=== PATIENT | male | born 1935 | race Hispanic/Latino ===

== ENCOUNTER 2018-02-10 06:52 | Day surgery (SDC) | payer BC ==
[2013-05-18 17:27] VITALS: BMI 25.0
[2018-02-10 07:32] VITALS: TEMP 97.9
[2018-02-10] MEDS ORDERED: Propofol 10 mg/ml Inj (20 ML) ONE (08:52)
[2018-02-10] MEDS ORDERED: Etomidate 20 mg/10ml Inj IV ONE (09:04)
[2018-02-10] MEDS ORDERED: Sodium Chloride 0.9% 1,000 ML IV SCH (09:15)
[2018-02-10 11:19] VITALS: BP 124/73; PULSE 57; RESP 16; O2SAT 98
== END 2018-02-10 11:00 | disposition home or self-care (01) ==
LOC: ENDO 06:52
PROVIDERS: ATTEND Internal Medicine Gastroenterology
DX: Z12.11 Encounter for screening for malignant neoplasm of colon (principal); Z86.010 Personal history of colon polyps; K57.30 Diverticulosis of large intestine without perforation or abscess without bleeding; K64.8 Other hemorrhoids; E11.9 Type 2 diabetes mellitus without complications; I10 Essential (primary) hypertension
CPT/HCPCS: 45378; J2001; J2704; J7030